=== PATIENT | male | born 1955 | race Caucasian/White ===

== ENCOUNTER 2018-05-19 08:30 | Outpatient (CLI) | payer OTHER ==
[2018-05-19 09:17] LABS: CREATININE 1.9 mg/dL (0.6-1.2)
== END 2018-05-19 08:31 | disposition home or self-care (01) ==
LOC: LAB 08:30
PROVIDERS: ATTEND Family Medicine
DX: E87.5 Hyperkalemia (principal)
CPT/HCPCS: 36415; 80048

== ENCOUNTER 2019-01-20 07:09 | Outpatient (CLI) | payer OTHER ==
[2019-01-20 07:44] LABS: ALBUMIN 3.9 g/dL (3.2-5.5); ALBUMIN/GLOBULIN RATIO 1.3 (1.0-2.2); ALKALINE PHOSPHATASE 55 IU/L (42-121); ALT ALANINE AMINOTRANSFERASE 21 IU/L (10-60); AST ASPARTATE AMINOTRANSFERASE 21 IU/L (10-42); BILIRUBIN,TOTAL 0.7 mg/dL (0.2-1.0); BUN - BLOOD UREA NITROGEN 28 mg/dL (6-20); CALCIUM 9.5 mg/dL (8.5-10.3); CARBON DIOXIDE - CO2 29 mmol/L (21-32); CHLORIDE 107 mmol/L (101-111); CHOL/HDL RATIO 5.2 (<5.0); CHOLESTEROL 186 mg/dL; CREATININE 1.9 mg/dL (0.6-1.2); GFR - MDRD 36 (>89); GLUCOSE 115 mg/dL (70-100); HDL CHOLESTEROL 36 mg/dL; LDL CHOLESTEROL,CALCULATED 131 mg/dL; LDL/HDL RATIO 3.6 (<3.6); SODIUM 144 mmol/L (135-145); TOTAL PROTEIN 6.9 g/dL (6.7-8.2); VALPROIC ACID (DEPAKOTE) 63.6 ug/mL; VLDL CHOLESTEROL 19 mg/dL
[2019-01-20 07:53] LABS: EOSINOPHILS # (AUTO) 0.2 10^3/uL (0.0-0.7); EOSINOPHILS % (AUTO) 4.9 %; HGB - HEMOGLOBIN 13.5 g/dL (14.0-18.0); LYMPHOCYTES # (AUTO) 1.4 10^3/uL (1.5-3.5); LYMPHOCYTES % (AUTO) 29.6 %; MEAN CORPUSCULAR HEMOGLOBIN 30.5 pg (27.0-31.0); MEAN CORPUSCULAR HGB CONC 32.6 g/dL (32.0-36.0); MEAN CORPUSCULAR VOLUME 93.4 fL (80.0-94.0); MEAN PLATELET VOLUME 8.3 fL (7.4-11.4); MONOCYTES # (AUTO) 0.3 10^3/uL (0.0-1.0); MONOCYTES % (AUTO) 5.7 %; NEUTROPHILS # (AUTO) 2.7 10^3/uL (1.5-6.6); NEUTROPHILS % (AUTO) 58.8 %; PLT - PLATELET COUNT 181 10^3/uL (130-450); RED BLOOD COUNT 4.45 10^6/uL (4.70-6.10); RED CELL DISTRIBUTION WIDTH 15.6 % (12.0-15.0); WHITE BLOOD COUNT 4.6 x10^3/uL (4.8-10.8)
== END 2019-01-20 07:10 | disposition home or self-care (01) ==
LOC: LAB 07:09
PROVIDERS: ATTEND Psychiatry & Neurology Psychiatry
DX: F31.74 Bipolar disorder, in full remission, most recent episode manic (principal)
CPT/HCPCS: 36415; 80053; 80061; 80164; 83721; 84443; 85025

== ENCOUNTER 2019-05-01 15:46 | Outpatient (CLI) | payer OTHER ==
--- NOTE | 2019-05-03 08:49 | MRI Report ---
Reason: MASS OF RIGHT WRIST JOINT Procedure Date: 05/01/2019 Accession Number: [id number] / [id number] Procedure: MRI - Wrist RT W/O CPT Code: FULL RESULT: EXAM: RIGHT WRIST MRI WITHOUT CONTRAST EXAM DATE: 05/01/2019 05:22 PM. CLINICAL HISTORY: Mass of right wrist joint. COMPARISON: WRIST 3 VIEW RT 04/15/2019 2:00 PM. TECHNIQUE: Multiplanar, multisequence T1-weighted and fluid-sensitive sequences of the wrist without contrast. Other: Image quality is suboptimal.. FINDINGS: Bones: There are no acute fractures. There is a bony structure distal to the ulna styloid process. It may be secondary to a prior avulsion injury of the tip of the ulnar styloid process. There are cysts in the scaphoid and capitate. There is focal overgrowth of the radial aspect of the proximal surface of the trapezium, suggestive of a prior avulsion injury. There is ulnar negative variance. There are osteophytes at the first metacarpophalangeal joint and carpometacarpal joint. Cartilage: There is mild erosion of the hyaline cartilage of the radiocarpal articulation. There is moderate erosion of the triscaphe and first carpometacarpal cartilage. There is a full-thickness tear of the mid substance of the TFC. The volar and dorsal radioulnar ligaments appear intact. Ligaments: There is widening of the scapholunate interval. The lunate is posteriorly tilted. The lunotriquetral ligament is intact. Tendons: There is fluid in the extensor digitorum tendon sheaths suggestive of tenosynovitis. There is fluid in the extensor carpi ulnaris tendon sheath. The flexor tendons appear grossly intact. Image quality is suboptimal, and subtle abnormalities cannot be excluded. Musculature: No edema or fatty atrophy. Other: The contents of the carpal tunnel, including the median nerve, are unremarkable. Guyons canal is unremarkable. There is a loculated, 3 x 14 x 11 mm ganglion cyst posterior to the distal radioulnar joint. The cyst appears to communicate with the joint. It underlies the surface marker. There is a moderate sized distal radioulnar joint effusion, and small midcarpal and radiocarpal joint effusions. The subcutaneous tissues are unremarkable. IMPRESSION: 1. Suboptimal image quality. 2. Findings suggestive of prior rupture of the scapholunate ligament with changes of DISI. 3. Full-thickness tear of the TFC. 4. Ulnar negative variance. 5. Ganglion cyst posterior to the distal radioulnar joint, communicating with the joint space. This corresponds with the surface marker. 6. Mild degenerative change of the carpometacarpal joint of the thumb, first metacarpophalangeal joint, distal radioulnar and radiocarpal joints. 7. Probable prior avulsion injury of the tip of the ulnar styloid process. 8. Tenosynovitis of the extensor digitorum, and extensor carpi ulnaris. RADIA
== END 2019-05-01 15:47 | disposition home or self-care (01) ==
LOC: DI 15:46
PROVIDERS: ATTEND Orthopaedic Surgery Sports Medicine
DX: S63.591A Other specified sprain of right wrist, initial encounter (principal); M67.431 Ganglion, right wrist; M18.11 Unilateral primary osteoarthritis of first carpometacarpal joint, right hand; M19.031 Primary osteoarthritis, right wrist; M65.9 Synovitis and tenosynovitis, unspecified

== ENCOUNTER 2023-07-30 07:10 | Outpatient (CLI) | payer MEDICARE, OTHER ==
--- NOTE | 2023-07-30 09:07 | XRAY Report ---
PROCEDURE: Ankle 3 View RT INDICATIONS: PAIN IN RIGHT ANKLE JOINT TECHNIQUE: 3 views of the ankle were acquired. COMPARISON: None. FINDINGS: Bones: No fractures or dislocations. Osteoarthritic changes are noted throughout midfoot and hindfoo t joints. Ankle mortise is normally aligned. No suspicious bony lesions. Soft tissues: Mild soft tissue swelling surrounding ankle joint is seen. No tibiotalar joint effusio n. Calcification involving distal Achilles tendon insertion on posterior calcaneus is noted. Ill-defi jr linear calcifications also noted within plantar aspect of hindfoot adjacent to anterior and poste rior aspect of plantar calcaneus. IMPRESSION: 1. No acute ankle fracture or dislocation. Midfoot and hindfoot joint osteoarthritis. 2. Suggestion of calcific tendinitis involving distal Achilles tendon at its posterior calcaneal inse rtion. Ill-defined calcification involving plantar right hindfoot soft tissue which may represent seq uela from prior injury. Mild ankle soft tissue swelling. Reviewed by: Arnol Smith MD on 07/30/2023 9:06 AM PST Approved by: Arnol Smith MD on 07/30/2023 9:06 AM PST Station ID: [id number]
[2023-07-30 14:50] LABS: BASOPHILS % (AUTO) 0.7 %; EOSINOPHILS # (AUTO) 0.2 10^3/uL (0.0-0.7); EOSINOPHILS % (AUTO) 3.6 %; HCT - HEMATOCRIT 41.6 % (42.0-52.0); HGB - HEMOGLOBIN 12.9 g/dL (14.0-18.0); LYMPHOCYTES # (AUTO) 1.4 10^3/uL (1.5-3.5); LYMPHOCYTES % (AUTO) 33.1 %; MEAN CORPUSCULAR HEMOGLOBIN 31.5 pg (27.0-31.0); MEAN CORPUSCULAR VOLUME 101.7 fL (80.0-94.0); MEAN PLATELET VOLUME 11.5 fL (7.4-11.4); MONOCYTES # (AUTO) 0.3 10^3/uL (0.0-1.0); MONOCYTES % (AUTO) 6.6 %; NEUTROPHILS # (AUTO) 2.3 10^3/uL (1.5-6.6); NEUTROPHILS % (AUTO) 55.8 %; PLT - PLATELET COUNT 165 10^3/uL (130-450); RED BLOOD COUNT 4.09 10^6/uL (4.70-6.10); RED CELL DISTRIBUTION WIDTH 15.4 % (12.0-15.0); WHITE BLOOD COUNT 4.1 x10^3/uL (4.8-10.8)
[2023-07-30 16:11] LABS: ALBUMIN 3.9 g/dL (3.2-5.5); ALBUMIN/GLOBULIN RATIO 1.8 (1.0-2.2); ALKALINE PHOSPHATASE 47 IU/L (42-121); ALT ALANINE AMINOTRANSFERASE 12 IU/L (10-60); AST ASPARTATE AMINOTRANSFERASE 15 IU/L (10-42); BILIRUBIN,TOTAL 0.3 mg/dL (0.2-1.0); BUN - BLOOD UREA NITROGEN 31 mg/dL (6-20); CALCIUM 9.6 mg/dL (8.5-10.3); CARBON DIOXIDE - CO2 26 mmol/L (21-32); CHLORIDE 112 mmol/L (101-111); CHOL/HDL RATIO 4.2 (<5.0); CHOLESTEROL 154 mg/dL; CREATININE 2.2 mg/dL (0.6-1.3); CRP - C-REACTIVE PROTEIN < 0.5 mg/dL (<0.5); GFR - MDRD 30 (>89); GLUCOSE 104 mg/dL (74-104); HDL CHOLESTEROL 37 mg/dL; LDL CHOLESTEROL,CALCULATED 96 mg/dL; LDL/HDL RATIO 2.6 (<3.6); POTASSIUM 4.9 mmol/L (3.5-4.5); SODIUM 143 mmol/L (135-145); TOTAL PROTEIN 6.1 g/dL (6.4-8.9); TRIGLYCERIDES 105 mg/dL (48-352); URIC ACID 4.8 mg/dL (4.4-7.6); VALPROIC ACID (DEPAKOTE) 44.7 ug/mL; VLDL CHOLESTEROL 21 mg/dL
== END 2023-07-30 07:11 | disposition home or self-care (01) ==
LOC: DI.S 07:10
PROVIDERS: ATTEND Physician Assistant
DX: M19.071 Primary osteoarthritis, right ankle and foot (principal); M10.9 Gout, unspecified; E78.5 Hyperlipidemia, unspecified; F30.9 Manic episode, unspecified
CPT/HCPCS: 36415; 80053; 80061; 80164; 83721; 84550; 85025; 85651; 86140